=== PATIENT | male | born 1965 | race Caucasian/White ===

== ENCOUNTER 2025-03-15 14:49 | Emergency (ER) | payer MEDICARE, MEDICAID, SELFPAY ==
--- OUTSIDE RECORDS SUMMARY | 2008-12-28 06:15 | XMS_ITS | Continuity of Care Document ---
Author Organization [facility] Address [address] [place] [address] Phone Care Team Providers Care Internal Control Consultant Name Role Phone Real OD, Michael Unavailable Unavailable Procedures Procedure Date Eye Exam & Treatment No Script Refraction Advance Directives Directive Yes / No Effective Date File Name No Information Encounters Encounter Description Practice Location Reason(s) For Visit Diagnoses Date Provider Providers Copied on Encounter [facility], [address], [place], [place], [id number], [place] tel:[phone] SEC [facility] No Information 1-200 9 Real OD Michael. [address] , [address], [place], [address], [place]. tel:[phone] Family History Family Member Type Diagnosis Age At Onset No Information Payers Payer name Insurance type Covered republican ID Authoriza tion(s) No Information Social History Type Description Quantity Date Captured Comments Sex Male Smoking Status No Information Chief Complaint And Reason For Visit No Information Reason For Referral Reason For Referral No Information History Of Present Illness Encounter Date Complaint History Of Prese nt Illness No Information Functional Status Date Functional Assessmen t No Information Instructions Date Instruction Additional Infor mation No Information Assessments Type Assessment Date No Information Patient Care Teams Name Effective Dates (start - stop) Status Members No Information
--- OUTSIDE RECORDS SUMMARY | 2008-12-28 06:15 | XMS_ITS | Continuity of Care Document ---
Author Organization [facility] Address [address] [place] [address] Phone Care Team Providers Care Stevedore Hold Name Role Phone Real OD, Michael Unavailable Unavailable Procedures Procedure Date Eye Exam & Treatment No Script Refraction Advance Directives Directive Yes / No Effective Date File Name No Information Encounters Encounter Description Practice Location Reason(s) For Visit Diagnoses Date Provider Providers Copied on Encounter [facility], [address], [place], [place], [id number], [place] tel:[phone] SEC [facility] No Information 1-200 9 Real OD Michael. [address] , [address], [place], [address], [place]. tel:[phone] Family History Family Member Type Diagnosis Age [...]
--- NOTE | ~2025-03-15 | XR_ITS ---
EXAMINATION: XR chest 2V, 03/15/2025 16:54 CDT HISTORY: Syncope COMPARISON: No comparisons available. Technique: 2 views obtained. Findings: The lungs are clear, no effusion. No pneumothorax. Heart is normal size. Mediastinal and hilar contours are within normal limits. There are remote left-sided rib fractures Impression: No acute cardiopulmonary abnormality. Reviewed, dictated and finalized at location A. Impression: No acute cardiopulmonary abnormality.
[2025-03-15 15:14] VITALS: BP 139/92; PULSE 86; RESP 16; TEMP 36.6; O2SAT 97
--- OUTSIDE RECORDS SUMMARY | 2025-03-15 16:18 | XMS_ITS | Clinical Summary ---
Author Organization [facility] Address [address] [place] [address] Phone Care Team Providers Care Chemistry Technical Officer Name Role Phone Unavailable Primary Care Provider Unavailabl e Allergies Active Allergy Reactions Criticality Noted Date Comments Prednisone Hives,Itching High 02/09/2013 Medications HYDROcodone-acet aminophen (LORCET 10650) 10-650 mg Oral Tab Take 1 Tab by mouth every 4 hours as needed. Active ALPRAZolam (XANAX) 0.5 mg Oral tablet Take 0.5 mg by mouth 3 times daily as needed. Active Social History Tobacco Use Types Packs/Day Years Used Date Smoking Tobacco: Every Day Cigarettes 1 25 Smokeless Tobacco: Never Alcohol Use Standard Drinks/Week Comments Yes 0 (1 standard drink = 0.6 oz pur e alcohol) SOCIALLY Sex and Gender Information Value Date Recorded Sex Assigned at Not on file Legal Sex Male 3:35 PM CDT Gender Identity Not on file Sexual Orientation Not on file Last Filed Vital Signs Vital Sign Reading Time Taken Comments Blood Pressure 151/94 02/15/2013 4:45 PM CDT Pulse 67 02/15/2013 4:45 PM CDT Temperature 36.7 C (98 F) 02/15/2013 4:45 PM CDT Respiratory Rate 20 02/15/2013 4:45 PM CDT Oxygen Saturation 97% 02/15/2013 4:45 PM CDT Inhaled Oxygen Concentration - - Weight 85.1 kg (187 lb 9.6 oz) 02/15/2013 10:48 AM CDT Height 174 cm (5' 8.5) 02/09/2013 10:53 AM CDT Body Mass Index 28.11 02/09/2013 10:53 AM CDT Plan of Treatment Health Maintenance Due Date Last Done Comments DTAP/TDAP/TD VACCINES (1 - Tdap) 11/04/1983 COLORECTAL SCREENING 2009 Colorectal Cancer Screening 2009 FIT-DNA Q 3 years 2009 FIT/FOBT Q 1 year 2009 Flex Sig/CT Colonography Q 5 years 2009 ZOSTER VACCINE (1 of 2) 2014 INFLUENZA VACCINE (#1) 2025 RSV VACCINE (60+ or ) (1 - 1-dose 75+ series) 11/04/2039 HEPATITIS B VACCINES Aged Out No long er eligible based on patient's age to complete this topic Medical Devices Implanted Type Area Account Resolution Expert Device Identifier Shelf Expiration Date Model / Serial / Lot [place] S[place] Crkscrw Biocmpst 5.5mm Ar-[id number] - [id number] Implanted:Qty: 1 on 02/15/2013 by Tien Barboza MD at [facility] [place] Left: Shoulder [employer] 11/27/2014 AR-1927BCF T / / [id number] [place] Pshlck Biocmpst 3.5x19.5mm Ar-[id number] - [id number] Implanted:Qty: 1 on 02/15/2013 by Tien Barboza MD at [facility] [place] Left: Shoulder [employer] 11/27/2014 AR-1926BC / / [id number] [place] Pshlck Biocmpst 3.5x19.5mm Ar-1926bc - [id number] Implanted:Qty: 1 on 02/15/2013 by Tien Barboza MD at [facility] [place] Left: Shoulder [employer] 11/27/2014 AR-1926BC / / [id number] Cage-Lower Spine Implanted:(Fili ntity not on file) Explanted:(Fili ntity not on file) Advance Directives For more information, please contact: [phone] * Full Code (Latest Code Status on File) Date Activated Date Inactivated Comments 02/15/2013 12:34 PM 02/15/2013 6:57 PM * Full Code Date Activated Date Inactivated Comments 02/15/2013 10:26 AM 02/15/2013 12:34 PM
--- NOTE | 2025-03-15 16:36 | ECG_ITS ---
Test Date: 2025-03-15 16:45:31 Measurements Intervals [place] Rate: 76 P: 58 MO: 190 QRS: -12 QRSD: 112 T: 35 QT: 384 QTc: 432 Interpretive Statements SINUS RHYTHM INCOMPLETE RIGHT BUNDLE BRANCH BLOCK [90+ ms QRS DURATION, TERMINAL R IN V1/V2, 40+ ms S IN I/aVL/V4/V5/V6] ABNORMAL ECG Compared to ECG 07/07/2024 08:13:13 Ectopic atrial rhythm no longer present Atrial abnormality no longer present Electronically Signed On 03-15-2025 17:20:18 CDT by Juventino Hidalgo M.D.
[2025-03-15 16:52] LABS: Hematocrit 42.3 % (42.0-52.0); Hemoglobin 14.1 g/dL (14.0-18.0); Immature Granulocyte Percent A 0.3 % (0-0.5); Lymphocytes Absolute Auto 3.14 K/mm3 (0.9-3.2); Mean Corpuscular HGB Conc 33.3 g/dl (32-36); Mean Corpuscular Hemoglobin 29.9 pg (26-34); Mean Corpuscular Volume 89.6 fl (80-100); Nucleated Red Blood Cells Absolute Auto 0.000 K/mm3 (0.0-0.012); Nucleated Red Blood Cells Perc 0.0 % (0.0-0.2); Platelet Count Result 237 k/mm3 (150-375); Red Blood Count 4.72 M/mm3 (4.6-6.20); White Blood Count 9.3 K/mm3 (4.5-10.0)
--- OUTSIDE RECORDS SUMMARY | 2025-03-15 17:01 | XMS_ITS | Clinical Summary ---
Author Organization [facility] Address [address] [place] [address] Phone Care Team Providers Care Travel Registered Nurse Icu Name Role Phone Unavailable Primary Care Provider [...] this topic Medical Devices Implanted Type Area Mathematical Sciences Professor Device Identifier Shelf Expiration Date Model / Serial / Lot [place] Sut Crkscrw Biocmpst 5.5mm Ar-1927bcft - [id number] Implanted:Qty: 1 on 02/15/2013 by Tien Barboza MD at [facility] [place] Left: Shoulder [employer] 11/27/2014 AR-1927BCF T / / [id number] [place] Pshlck Biocmpst 3.5x19.5mm Ar-1926bc - [id number] Implanted:Qty: 1 on 02/15/2013 by Tien Barboza MD at [facility] [place] Left: Shoulder [employer] 11/27/2014 AR-1926BC / / [id number] [place] Pshlck Biocmpst 3.5x19.5mm Ar-1926bc - [id number] Implanted:Qty: 1 on 02/15/2013 by Tien Barboza MD at [facility] [place] Left: Shoulder [employer] 11/27/2014 AR-1926BC / / [id number] Cage-Lower Spine Implanted:(Fili ntity not on file) Explanted:(Fili ntity not on file) Advance Directives For more information, please contact: [phone] * Full Code (Latest Code Status on File) Date Activated Date Inactivated Comments 02/15/2013 12:34 PM 02/15/2013 6:57 PM * Full Code Date Activated Date Inactivated Comments 02/15/2013 10:26 AM 02/15/2013 12:34 PM
[2025-03-15 17:03] LABS: Alanine Aminotransferase 18 U/L (6-50); Albumin Level 4.2 g/dL (3.5-5.1); Alkaline Phosphatase 75 U/L (38-126); Anion Gap 9 mmol/L (4-12); Aspartate Amino Transferase 25 U/L (17-59); Bilirubin,Total 0.6 mg/dL (0.2-1.3); Blood Urea Nitrogen 16 mg/dL (9-20); Calcium 8.9 mg/dL (8.4-10.2); Carbon Dioxide 22 mmol/L (22-30); Chloride 106 mmol/L (98-107); Estimated CRCL calculation 75 ml/min; Estimated Glomerular Filt Rate > 60; Glucose 94 mg/dL (65-110); Potassium 3.7 mmol/L (3.4-5.0); Sodium 137 mmol/L (137-145); Total Protein 7.5 g/dL (6.3-8.2)
[2025-03-15 17:46] VITALS: BP 138/92; PULSE 73; RESP 25; O2SAT 100
[2025-03-15 18:01] VITALS: BP 150/88; PULSE 69; RESP 28; O2SAT 96
--- NOTE | 2025-03-15 18:11 | ED_ITS ---
HPI - Syncope General Chief Complaint: Syncope Stated Complaint: multiple syncopal events Time Seen by Provider: 03/15/25 16:50 Source: patient Mode of arrival: ambulatory Limitations: no limitations History of Present Illness HPI narrative: 59-year-old otherwise healthy here with a complains having multiple syncopal episodes over the last several weeks. Patient states that he just passes out. He denies having any headache or chest pain or shortness of breath. Onset (ago): unknown Prodromal symptoms: none Injuries sustained associated with event: none Current symptoms: none Related Data Allergies Allergy/AdvReac Type Severity Reaction Status Date / Time prednisone Allergy Mild Unknown Verified 03/15/25 14:52 iodine Allergy Unknown Verified 03/15/25 14:52 Review of Systems 2 Review of Systems: All systems reviewed & are unremarkable except as noted in HPI and below Constitutional: Constitutional: Reports no additional constitutional complaints Eyes: Eyes: Reports no additional eye complaints ENT: Reports system reviewed and no additional complaints, except as documented Cardiovascular: Cardiovascular: Reports no additional cardiovascular complaints Respiratory: Respiratory: Reports no additional respiratory complaints Gastrointestinal: Gastrointestinal: Reports no additional gastrointestinal complaints Musculoskeletal: Musculoskeletal: Reports no additional musculoskeletal complaints PMFSH Past Medical History Medical History Chronic right shoulder pain Exam 2 Narrative: GENERAL: Well-appearing, well-nourished, and in no acute distress. HEAD: Normocephalic, atraumatic. EYES: PERRLA and EOMI. ENT: Nares clear, no rhinorrhea or epistaxis. Mucous membranes moist. NECK: Supple. CHEST: Clear to auscultation. No respiratory distress. HEART: Regular rate and rhythm. No murmur heard. Normal peripheral pulses. ABDOMEN: Soft, nontender, nondistended, normal active bowel sounds. EXTREMITIES: Normal range of motion. No edema. SKIN: Warm, dry, no rash. NEURO: No focal deficits. Alert and oriented x3. PSYCH: Normal mood and affect. Course Course Emergency Course: Notified pt and his about his lab and ekg findings , advised him to come in the morning for a Holter monitor . Vital Signs Vital signs: Vital Signs Temperature 36.6 C 03/15/25 15:14 Pulse Rate 86 03/15/25 15:14 Respiratory Rate 16 03/15/25 15:14 Blood Pressure 139/92 H 03/15/25 15:14 Pulse Oximetry 97 03/15/25 15:14 Temperature 36.6 C 03/15/25 15:14 Pulse Rate 86 03/15/25 15:14 Respiratory Rate 16 03/15/25 15:14 Blood Pressure 139/92 H 03/15/25 15:14 Pulse Oximetry 97 03/15/25 15:14 MDM - Syncope Differential Diagnosis Differential diagnosis: Likely syncope due to orthostatic hypotension and vasovagal syncope Medical Records Attestation: I reviewed the patient's medical records. Lab Data Attestation: I reviewed the patient's lab results. 03/15/25 16:44 03/15/25 16:44 Labs: Lab Results 03/15/25 Range/Units 16:44 WBC 9.3 (4.5-10.0) K/mm3 RBC 4.72 (4.6-6.20) M/mm3 Hgb 14.1 (14.0-18.0) g/dL Hct 42.3 (42.0-52.0) % MCV 89.6 (80-100) fl MCH 29.9 (26-34) pg MCHC 33.3 (32-36) g/dl RDW 14.2 (11.5-14.5) % Plt Count 237 (150-375) k/mm3 MPV 9.6 (7.4-10.4) fl Immature Gran % (Auto) 0.3 (0-0.5) % Neut % (Auto) 56.9 (45.5-73.1) % Lymph % (Auto) 33.7 (18.3-44.2) % Pettis % (Auto) 7.1 (2.6-8.5) % Eos % (Auto) 1.2 (0-4.4) % Baso % (Auto) 0.8 (0.2-1.2) % Lymph # (Auto) 3.14 (0.9-3.2) K/mm3 Pettis # (Auto) 0.7 H (0.1-0.6) K/mm3 Eos # (Auto) 0.1 (0-0.3) K/mm3 Baso # (Auto) 0.1 (0.0-0.1) K/mm3 Abs Immat Gran (auto) 0.03 (0.00-0.031) K/mm3 Absolute Neuts (auto) 5.3 (1.3-6.7) K/mm3 Absolute Nucleated RBC 0.000 (0.0-0.012) K/mm3 Nucleated RBC % 0.0 (0.0-0.2) % Sodium 137 (137-145) mmol/L Potassium 3.7 (3.4-5.0) mmol/L Chloride 106 (98-107) mmol/L Carbon Dioxide 22 (22-30) mmol/L Anion Gap 9 (4-12) mmol/L BUN 16 (9-20) mg/dL Creatinine 0.89 (0.7-1.3) mg/dL Estim Creat Clear Calc 75 ml/min Estimated GFR > 60 (59 - ) Glucose 94 (65-110) mg/dL Calcium 8.9 (8.4-10.2) mg/dL Total Bilirubin 0.6 (0.2-1.3) mg/dL AST 25 (17-59) U/L ALT 18 (6-50) U/L Alkaline Phosphatase 75 (38-126) U/L Total Protein 7.5 (6.3-8.2) g/dL Albumin 4.2 (3.5-5.1) g/dL ECG Data EKG #1: ECG completion date: 03/15/25 ECG completion time: 16:45 EKG Interpretation: normal rate (76), sinus rhythm, no ST changes, normal QRS and normal QT Discharge Plan Discharge Clinical Impression: Syncope Qualifiers: Syncope type: unspecified Qualified Code(s): R55 - Syncope and collapse Patient Disposition: Home Condition: Stable Instructions: Syncope (ED) Additional Instructions: continue home medications , follow with your doctor , can come back in the morning to cardiology department in [facility] for a Holter monitor . Patient Language: Uzbek Prescriptions: No Action lidocaine 4 % adhesive patch,medicated 1 patch topical DAILY PRN (Reason: pain) Qty: 5 0RF methocarbamol 750 mg tablet 750 mg PO HS Qty: 7 0RF ibuprofen 600 mg tablet 600 mg PO TID PRN (Reason: pain) Qty: 30 0RF acetaminophen 500 mg capsule 1,000 mg PO Q6H PRN (Reason: pain) Qty: 30 0RF Other Ambulatory Orders: [place] holter monitor 3-7 day (Routine) Timeframe: 1 Day Location: Determined by Patient Ordered By: Bryson Russo Follow-up/Referrals: Jamie,MD Nas [Primary Care Provider] Time of Disposition: 18:12
[2025-03-15 18:17] VITALS: BP 130/92; PULSE 76; RESP 25; O2SAT 99
--- NOTE | 2025-03-15 18:30 | PC.NURSE ---
this RN went into pt room to discharge pt. pt and pt yelling at this RN I do not agree with this doctors orders something is wrong with my , I've been to him for the last 40 years so I know If he dies tonight I'm going to ed this entire hospital this RN educated the pt and his that the ER rules out life threatening illnesses and the pt is currently not having any and to follow up with his PCP and come back tomorrow for a Holter monitor per EDP orders pt was cussing and yelling at this RN this RN escorted pt and his out of the department, pt is ambulatory with a steady gait. pt is A&OX4
== END 2025-03-15 18:37 | disposition home or self-care (01) ==
PROVIDERS: Emergency Provider Family Medicine; PCP Internal Medicine
DX: R55 Syncope and collapse (principal); I45.10 Unspecified right bundle-branch block
CPT/HCPCS: 36415; 71046; 80053; 85025; 93005; 99284